=== PATIENT | male | born 1960 | race Caucasian/White ===

== ENCOUNTER 2022-11-16 07:13 | Emergency (ER) | payer MEDICAID, OTHER ==
[~2022-11-16] VITALS: Ht 180.3 cm; Wt 81.6 kg
[2022-11-16 07:13] VITALS: BP 151/76
[2022-11-16] MEDS ORDERED: LIDODERM TP STA (07:31)
[2022-11-16] MEDS ORDERED: ROBAXIN PO STA (07:31)
[2022-11-16] MEDS ORDERED: TORADOL IM STA (07:31)
[2022-11-16] MEDS ORDERED: MOTRIN PO STA (07:36)
[2022-11-16] MEDS ORDERED: ROBAXIN ONE (07:37)
[2022-11-16] MEDS ORDERED: LIDODERM TP ONE (07:37)
--- NOTE | 2022-11-16 07:45 | ER.PDOC ---
General Chief Complaint: Back Pain/Injury Stated Complaint: BACK INJURY Time seen by MD: 07:15 Source: patient Exam Limitations: no limitations History of Present Illness Initial Comments Pt is a 62y m with pmhx of back surgery who comes in with new onset back pain that started 2 days ago. Says its sore to sharp in nature made worse with movement and palpation and better with rest, radiates down right leg. Denies any recent injury or having hardware in his back. PT states he has an allergy to ketorolac. Allergies: Coded Allergies: No Known Drug Allergies (Verified Allergy, Unknown, 11/16/22) Past Medical History Surgical History: back, cholecystectomy, neck Family History Significant Family History: no pertinent family hx Social History Smoking: greater than 1 pack/day Alcohol Use: none Drug Use: marijuana Reviewed Nursing Reviewed: Vital Signs, Abn. Noted, Nursing Assessment Review of Systems Constitutional: no symptoms reported EENTM: no symptoms reported Respiratory: no symptoms reported Cardiovascular: no symptoms reported Gastrointestinal: no symptoms reported Genitourinary: no symptoms reported Musculoskeletal: back pain Skin: no symptoms reported Psychiatric/Neurological: no symptoms reported Physical Exam General Appearance: No Apparent Distress, WD/WN HEENT: PERRL/EOMI, Normal ENT Inspection, TMs Normal, Pharynx Normal Neck: Non-Tender, Normal Alignment Cardiovascular/Respiratory: Regular Rate, Rhythm, No M/R/G, Normal Peripheral Pulses, No JVD, Normal Breath Sounds, No Respiratory Distress Gastrointestinal: Normal Bowel Sounds, No Organomegaly, No Pulsatile Mass, Non Tender, Soft Back: Muscle Spasm, Other (Well-healed surgical scar) Extremities: No Evidence of Injury, Normal Range of Motion, Non-Tender, No Pedal Edema, Pelvis Stable Neuro/Psych: Alert, store detective nml/symmetrical, mood/effect nml, No Motor/Sensory Deficits, Relexes nml Skin: Normal Color, Warm/Dry Results/Orders Results/Orders Orders - TONA RAMIREZ MD Ketorolac Tromethamine (Toradol) (11/16/22 07:31) Lidocaine (Lidoderm) (11/16/22 07:31) Methocarbamol (Robaxin) (11/16/22 07:31) Ibuprofen (Motrin) (11/16/22 07:36) Vital Signs Date Time Temp Pulse Resp B/P (MAP) Pulse Ox O2 Delivery O2 Flow Rate FiO2 11/16/22 07:13 98.2 86 18 100 11/16/22 07:13 98.2 86 18 151/76 (101) 100 Room Air* 0 21 11/16/22 07:13 98.2 86 18 Progress Progress Patient here with back pain consistent with sciatica after ketorolac injection patient said he is allergic will give high-dose ibuprofen Robaxin and a Lidoderm patch will have patient ultimately follow-up with specialist for further imaging as patient has no acute trauma thus no imaging needed here. Patient has no red flag symptoms either so no perennial numbness no bowel or bladder incontinence no inability to walk. 0743 - reassessment - pt just got meds but will plan to dc with ibuprofen robaxin and lidoderm patches - with f/up He and voiced understanding when to follow-up and when to return to the ER. ER DEPART Departure Time of Disposition: 07:44 Disposition: 01 HOME / SELF CARE / HOMELESS Impression: Primary Impression: Back pain Condition: Improved Patient Instructions: Back Pain, Adult Referrals: PCP,UNKNOWN (PCP) PRIMARY CARE PROVIDER Additional Instructions: Follow-up with your primary care provider within 1 week. If you have any new persistent or worsening symptoms or concerns seek medical attention. Please take all medications as prescribed. Duration or Time Spent with Pa: 30 Problem Qualifiers Primary Impression: Back pain Back pain location: low back pain Chronicity: acute Back pain laterality: midline Sciatica presence: with sciatica Sciatica laterality: sciatica of right side Qualified Codes: M54.41 - Lumbago with sciatica, right side TONA RAMIREZ MD Nov 16, 2022 07:45
== END 2022-11-16 08:07 | disposition home or self-care (01) ==
LOC: ER 07:13
DX: M54.41 Lumbago with sciatica, right side (principal); F12.90 Cannabis use, unspecified, uncomplicated; F17.210 Nicotine dependence, cigarettes, uncomplicated; Z90.49 Acquired absence of other specified parts of digestive tract
CPT/HCPCS: 99283; J2800

== ENCOUNTER 2022-11-21 11:28 | Emergency (ER) | payer MEDICAID ==
[~2022-11-21] VITALS: Ht 180.3 cm; Wt 81.6 kg
[2022-11-21 12:03] VITALS: BP 126/70
--- NOTE | 2022-11-21 12:03 | NUR ---
ARRIVAL PATIENT ARRIVED TO [facility] AMBULATORY, C/O BACK PAIN FOR ONE WEEK, WAS SEEN IN THIS ED APPROX 1 WEEKS AGO AND GIVEN ROBAXIN,LIDICAINE PATCHES AND IBUPROFEN TO GO HOME WITH, TODAY THE PATIENT STATES THE PAIN CONTINUES, CAME TO THE ED FOR EVAL, VITAL SIGNS TAKEN AND DOCTOR NOTIFIED OF PATIENT'S ARRIVAL.
[2022-11-21] MEDS ORDERED: MORPHINE SULFATE IM STA (12:17)
[2022-11-21] MEDS ORDERED: MORPHINE SULFATE ONE (12:52)
--- NOTE | 2022-11-21 12:56 | DIREP ---
PROCEDURE:XRAY SPINE LUMBAR 2-3 VWS COMPARISON:None. INDICATIONS:Pain TECHNIQUE:AP, lateral, and coned down lateral views of the lumbar spine are provided. FINDINGS: ALIGNMENT:Normal. VERTEBRAE:Normal vertebral height. Moderate anterior lateral osteophyte formation. Mild facet arthrosis. DISK SPACES:Normal. SPONDYLOLISTHESIS:None. SACROILIAC JOINTS:Normal. OTHER:Cholecystectomy clips. Moderate colonic stool burden. CONCLUSION:Degenerative changes without acute bony abnormality. Dictated by: Elvis Tabares M.D. on 11/21/2022 at 12:52 PM
--- NOTE | 2022-11-21 13:16 | ER.PDOC ---
General Chief Complaint: Lower Back Pain or Injury Stated Complaint: BACK PAIN Time seen by MD: 12:10 Source: patient Exam Limitations: no limitations History of Present Illness Initial Comments Low back pain for 1 week. No fall or injury. Patient has chronic back pain and has had back surgery. He was seen here a week ago for the same complaint. He was discharged home on ibuprofen and Robaxin which does not seem to be helping. He has some tingling in lower extremities. Pain also radiates to the lower extremity. No urinary or fecal incontinence. Timing/Duration: constant Severity/Quality: moderate Radiation: buttocks, upper legs, lower legs Method of Injury: bending, twisted Associated Symptoms: muscle spasms Allergies: Coded Allergies: ketorolac (Verified Allergy, Unknown, 11/16/22) Past Medical History Medical History: other Surgical History: back Family History Significant Family History: no pertinent family hx Social History Smoking: non-smoker Alcohol Use: none Drug Use: none Review of Systems Constitutional: no symptoms reported EENTM: no symptoms reported Respiratory: no symptoms reported Cardiovascular: no symptoms reported Gastrointestinal: no symptoms reported Musculoskeletal: see HPI All Other Systems: Reviewed and Negative Physical Exam General Appearance: No Apparent Distress, WD/WN Neck: Non-Tender, Normal Alignment Cardiovascular/Respiratory: Regular Rate, Rhythm, No M/R/G, Normal Peripheral Pulses, No JVD, Normal Breath Sounds, No Respiratory Distress Gastrointestinal: Normal Bowel Sounds, No Organomegaly, No Pulsatile Mass, Non Tender, Soft Back: Muscle Spasm, Vertebral Tenderness (L spine) Extremities: No Evidence of Injury, Normal Range of Motion, Non-Tender, No Pedal Edema, Pelvis Stable Neuro/Psych: Alert, construction management assistant nml/symmetrical, mood/effect nml, No Motor/Sensory Deficits, Relexes nml Skin: Normal Color, Warm/Dry Results/Orders Results/Orders Orders - DASHAWN CEJA MD Xr Lspine 2-3v (11/21/22 12:17) Morphine Sulfate (Morphine Sulfate) (11/21/22 12:17) Morphine Sulfate (Morphine Sulfate) (11/21/22 12:52) Vital Signs Date Time Temp Pulse Resp B/P (MAP) Pulse Ox O2 Delivery O2 Flow Rate FiO2 11/21/22 12:03 98.0 77 18 11/21/22 12:03 98.0 77 18 126/70 (88) 98 Room Air* 0 21 11/21/22 12:03 98.0 77 18 98 Administered Medications Medications (Trade) Dose Ordered Sig/Janey Route PRN Reason Start Time Stop Time Status Last Admin Dose Admin Morphine Sulfate (Morphine Sulfate) 4 mg STAT STAT IM 11/21/22 12:17 11/21/22 12:19 DC 11/21/22 12:55 4 MG Progress Progress X rays L spine: Degenerative changes without acute bony abnormality. Patient received morphine with improvement in pain. ER DEPART Departure Time of Disposition: 13:15 Disposition: 01 HOME / SELF CARE / HOMELESS Impression: Primary Impression: Low back pain Condition: Improved Referrals: PCP,UNKNOWN (PCP) PRIMARY CARE PROVIDER Additional Instructions: Tylenol #3 Medrol Dosepak Continue Robaxin at home Follow-up with her PCP in 2 to 3 days Return to ED if worsening or concerns Duration or Time Spent with Pa: 10 min Problem Qualifiers Primary Impression: Low back pain Chronicity: unspecified Back pain laterality: unspecified Sciatica presence: with sciatica Sciatica laterality: bilateral sciatica Qualified Codes: M54.42 - Lumbago with sciatica, left side; M54.41 - Lumbago with sciatica, right side DASHAWN CEJA MD Nov 21, 2022 13:16
[2022-11-21 13:25] VITALS: BP 143/81
== END 2022-11-21 13:25 | disposition home or self-care (01) ==
LOC: ER 11:28
DX: M54.41 Lumbago with sciatica, right side (principal); M54.42 Lumbago with sciatica, left side; G89.29 Other chronic pain
CPT/HCPCS: 72100; 96372; 99283